=== PATIENT | male | born 1985 | race African-American/Black ===

== ENCOUNTER 2024-01-04 09:48 | Emergency (ER) | payer SELFPAY ==
[~2024-01-04] VITALS: Ht 172.7 cm; Wt 100.0 kg
[2024-01-04 09:49] VITALS: O2SAT 99
[2024-01-04 10:47] LABS: BASOPHILS % 0.4 % (0.0-2.0); EOSINOPHILS % 0.4 % (0.0-5.0); HEMOGLOBIN. 12.6 g/dL (14.0-18.0); LYMPHOCYTES % 16.6 % (20.0-50.0); MEAN CORPUSCULAR HEMOGLOBIN 30.2 pg (28.0-32.0); MEAN CORPUSCULAR VOLUME 88.9 fL (80.0-94.0); MEAN PLATELET VOLUME 7.9 fl (7.4-10.4); MONOCYTES % 11.9 % (2.0-8.0); NEUTROPHILS % 70.7 % (40.0-76.0); PLATELET 297 x1000/uL (130-400); RED BLOOD CELL COUNT 4.16 mill/uL (4.7-6.1)
[2024-01-04 10:55] LABS: CHLORIDE 103 mEq/L (98-107); POTASSIUM 3.3 mEq/L (3.5-5.1); SODIUM 139 mEq/L (136-145)
[2024-01-04 10:56] LABS: CALCIUM 8.1 mg/dL (8.7-10.4); CARBON DIOXIDE 28 mEq/L (21-32)
[2024-01-04 11:01] LABS: GLUCOSE 104 mg/dL (70-105); UREA NITROGEN BLOOD 6 mg/dL (9-23)
[2024-01-04 11:03] LABS: ALANINE AMINOTRANSFERASE 41 IU/L (10-49); ALBUMIN 4.2 g/dL (3.2-4.8); ASPARTATE AMINOTRANSFERASE 24 IU/L (<34); BILIRUBIN TOTAL 0.3 mg/dL (0.1-1.0); PROTEIN TOTAL 7.3 g/dL (6.0-8.3)
[2024-01-04] MEDS: ACETAMINOPHEN 325MG TABLET PO ONE (11:53)
[2024-01-04] MEDS ORDERED: [UNRECOGNIZED DRUG - CODE] PO (12:04)
[2024-01-04 12:23] VITALS: BP 158/78; PULSE 79; RESP 16; TEMP 97.8
== END 2024-01-04 12:26 | disposition home or self-care (01) ==
LOC: ER 10:06
DX: J06.9 Acute upper respiratory infection, unspecified (principal)
CPT/HCPCS: 36415; 80053; 85025; 99283